=== PATIENT | female | born 2000 | race Caucasian/White ===

== ENCOUNTER 2021-02-28 12:45 | Emergency (ER) | payer OTHER ==
[2021-02-28 13:57] LABS: BASOPHIL 1.6 % (0-2); EOSINOPHIL 4.4 % (0-5); HCT 40.4 % (37.0-47.0); HGB 12.9 g/dl (12.5-16.0); LYMPHOCYTE 28.7 % (15-48); MCH 25.7 pg (25.0-31.0); MCHC 31.9 g/dL (32.0-36.0); MCV 80.5 fL (78.0-100.0); MONOCYTE 11.7 % (0-12); MPV 10.9 fL (6.0-9.5); NEUTROPHIL 53.4 % (41-80); NRBC 0; PLT 210 K/uL (150-400); RBC 5.02 M/uL (4.20-5.40); RDW 13.1 % (11.5-14.0); WBC 4.3 K/uL (4.0-10.5)
[2021-02-28 14:22] LABS: BUN/CREAT RATIO (CALC) 11.9 RATIO; CREATININE 0.67 mg/dL (0.51-0.95); POTASSIUM 3.8 mmol/L (3.5-5.1)
[2021-02-28 14:46] LABS: BILIRUBIN NEGATIVE (NEGATIVE); BLOOD 2+ Ery/uL (NEGATIVE); CLARITY CLEAR (CLEAR); COLOR YELLOW (YELLOW); GLUCOSE (U) NORMAL (NORMAL); LEUKOCYTES NEGATIVE Leu/uL (NEGATIVE); NITRITE NEGATIVE (NEGATIVE); PROTEIN NEGATIVE (NEGATIVE); SPECIFIC GRAVITY 1.015 (1.001-1.030); UROBILINOGEN 0.2 mg/dL (0.2-1.0)
[2021-02-28 15:27] LABS: BACTERIA TRACE; URINARY RBC RARE; URINARY WBC RARE
== END 2021-02-28 16:35 | disposition home or self-care (01) ==
LOC: FER 12:45
PROVIDERS: Nurse Practitioner Family
DX: N93.8 Other specified abnormal uterine and vaginal bleeding (principal); Z88.1 Allergy status to other antibiotic agents
CPT/HCPCS: 36415; 80048; 81001; 85025; 99284; J7030